=== PATIENT | female | born 1970 | race Caucasian/White ===

== ENCOUNTER → 2023-10-10 10:58 | Outpatient (BNVA) | payer OTHER, SELFPAY | PROVIDERS: Visit Provider Nurse Practitioner Family | DX: M25.571 Pain in right ankle and joints of right foot (principal) | CPT/HCPCS: 73610 ==

== ENCOUNTER → 2023-10-14 14:34 | Outpatient (BNVA) | payer OTHER, SELFPAY | PROVIDERS: Visit Provider Podiatrist Foot & Ankle Surgery | DX: S93.401A Sprain of unspecified ligament of right ankle, initial encounter; X50.9XXA Other and unspecified overexertion or strenuous movements or postures, initial encounter | CPT/HCPCS: 73610 ==

== ENCOUNTER → 2024-04-20 08:47 | Outpatient (BNVA) | payer OTHER, SELFPAY | PROVIDERS: Visit Provider Nurse Practitioner Women's Health | DX: Z32.01 Encounter for pregnancy test, result positive (principal); N91.2 Amenorrhea, unspecified; N88.8 Other specified noninflammatory disorders of cervix uteri | CPT/HCPCS: 76830; 81025; 82670; 83001; 83002; 84702; 86850; 86900 ==

== ENCOUNTER → 2024-04-28 09:03 | Outpatient (BNVA) | payer OTHER, SELFPAY | PROVIDERS: Visit Provider Nurse Practitioner Women's Health | DX: N91.2 Amenorrhea, unspecified (principal) | CPT/HCPCS: 84702 ==

== ENCOUNTER → 2024-05-06 08:41 | Outpatient (BNVA) | payer OTHER, SELFPAY | PROVIDERS: Visit Provider Nurse Practitioner Women's Health | DX: N88.8 Other specified noninflammatory disorders of cervix uteri (principal) | CPT/HCPCS: 76830 ==

== ENCOUNTER → 2024-05-12 08:40 | Outpatient (BNVA) | payer OTHER, SELFPAY | PROVIDERS: Visit Provider Obstetrics & Gynecology | DX: R30.0 Dysuria (principal) | CPT/HCPCS: 84315; 87086 ==

== ENCOUNTER 2024-05-21 06:44 | Day surgery (SDC) | payer OTHER, BC, SELFPAY ==
[2024-05-21] VITALS (10 sets, daily range): BP systolic 145–201; BP diastolic 98–148; PULSE 67–98; RESP 14–22; TEMP 36.1–36.9; O2SAT 95–100; BMI 22.1
--- NOTE | 2024-05-21 05:06 | P.HP_ITS ---
Same Day Surgery H&P Indication for Procedure/HPI DATE OF PROCEDURE: May 21, 2024 CHIEF COMPLAINT/INDICATIONFOR SURGICAL PROCEDURE: abnormal uterine bleeding PREOP DIAGNOSIS: abnormal uterine bleeding PLANNED PROCEDURE: Operation Date: 05/21/24 08:35 Proposed Procedures p Hysteroscopy Hysteroscopy w/ Endometrial Sampling 07447, N93.9(Not Applicable) - Jeremias Bustamante MD s possible endometrial polypectomy(Not Applicable) - Jeremias Bustamante MD 54 y.o. with abnormal uterine bleeding Medications/Allergies* Home Medications Medication Instructions Recorded Confirmed Type No Known Home Medications 05/20/24 05/20/24 History Allergies/Adverse Reactions Allergy/AdvReac Type Severity Reaction Status Date / Time No Known Allergies Allergy Verified 05/20/24 13:40 Pertinent History/Comorbid Conditions* Family History (Updated 04/20/24 @ 10:27 by Phuong Leach [facility]) Hypertension Father Denies family history of Colon cancer Ovarian cancer Prostate cancer Diabetes Heart disease Breast cancer Uterine cancer Thyroid disease Stroke Social History Smoking and tobacco/nicotine status: never used tobacco/nicotine Pertinent Exam Findings alert, oriented x 3, clear to auscultation bilaterally and regular rate & rhythm Recommendations Surgery/Procedure today Coding Level of Care Code Acute Code for Chg Fwd Time Spent (min) 20
[2024-05-21] MEDS: sodium chloride 0.9% 1,000 ML 30 ML IV (07:14)
--- NOTE | 2024-05-21 07:27 | ANES.PREANE2 ---
Pre-Anesthetic Assessment Height/Weight: Height 5 ft 9 in Weight 150 lb Temp Pulse Resp BP Pulse Ox O2 Del Method 98.4 F 98 18 177/129 98 Room Air 05/21/24 06:53 05/21/24 06:53 05/21/24 06:53 05/21/24 06:53 05/21/24 06:53 05/21/24 06:53 Preop Diagnosis: abnormal uterine bleeding Operation Date: 05/21/24 08:35 Proposed Procedures p Hysteroscopy Hysteroscopy w/ Endometrial Sampling 80407, N93.9(Not Applicable) - Jeremias Bustamante MD s possible endometrial polypectomy(Not Applicable) - Jeremias Bustamante MD Last intake: Intake Last Liquid Date 05/20/24 Last Liquid Time 19:00 Last Solid Date 05/20/24 Last Solid Time :00 Social No alcohol and No tobacco Exam alert, oriented x 3, clear to auscultation bilaterally and regular rate & rhythm Airway Submandibular: within normal limits Cervical ROM: within normal limits Mallampati: Class II Dentition: full Anesthetic Plan ASA status: 2 Anesthesia: General Other: No prior issues with anesthesia NPO since midnight BP 177/129 this a.m. in preop. Patient states that she is very nervous. No home BP meds She denies any cardiac or pulmonary issues METs greater than 4 Plan for general anesthesia with LMA Medications/Allergies Home Medications Medication Instructions Recorded Confirmed Last Taken Type No Known Home Medications 05/20/24 05/20/24 Unknown History Allergies Allergy/AdvReac Type Severity Reaction Status Date / Time No Known Allergies Allergy Verified 05/20/24 13:40 Current Medications Generic Name Dose Route Start Last Admin Trade Name Alf PRN Reason Stop Dose Admin Sodium Chloride 1,000 mls @ 30 mls/hr 05/21/24 07:00 05/21/24 07:14 Sodium Chloride 0.9% IV 05/22/24 06:59 30 mls/hr .Q24H TARIQ Administration PFSH Anesthesia Family History (Updated 04/20/24 @ 10:27 by Phuong Leach CMA) Father Hypertension Denies family history of Colon cancer Ovarian cancer Prostate cancer Diabetes Heart disease Breast cancer Uterine cancer Thyroid disease Stroke Social History Smoking and tobacco/nicotine status: never used tobacco/nicotine Data Anesthesia Cardiac Studies: No Data to Display
--- NOTE | 2024-05-21 07:27 | W.PM.OPSUD ---
Surgery/Procedure H&P Update DATE OF PROCEDURE: May 21, 2024 DATE H&P PERFORMED: 05/12/24 H&P UPDATE INFORMATION: I have reviewed H&P completed within last 30 days, I have examined patient prior to procedure and No changes to prior documentation PREOP DIAGNOSIS: abnormal uterine bleeding PLANNED PROCEDURE: Operation Date: 05/21/24 08:35 Proposed Procedures p Hysteroscopy Hysteroscopy w/ Endometrial Sampling 59770, N93.9(Not Applicable) - Jeremias Bustamante MD s possible endometrial polypectomy(Not Applicable) - Jeremias Bustamante MD
--- NOTE | 2024-05-21 08:20 | PM.OP ---
Operative Report Date of procedure: May 21, 2024 Pre-op diagnosis: abnormal uterine bleeding Post-op diagnosis: same Post-op findings: normal endometrial cavity No polyps / fibroids Minimal endometrial tissue Procedure done: hysteroscopy Curettage of uterus Implants: none Specimens removed/disposition: endometrial curettings Surgeon: Jeremias Bustamante MD Anesthesia: MAC Estimated blood loss (mL): 0 Complications: none Findings: normal endometrial cavity No polyps / fibroids Minimal endometrial tissue Condition: stable Disposition: PACU Brief History: 54 y.o. with abnormal uterine bleeding Procedure: Informed consent signed. Patient was taken to the operating room. Anesthesia was induced. Patient was placed in dorsolithotomy position, prepped and draped for hysteroscopy. A bivalve speculum was placed in the vagina. The anterior lip of the cervix was grasped with a sharp-toothed tenaculum. The cervix was serially dilated with Hegar dilators. . A hysteroscope was placed into the endometrial cavity. The endometrial cavity was seen to be normal. There were no polyps or fibroids. There was a minimal amount of endometrial tissue. The hysteroscope was then removed. Endometrial curettage was done with a sharp curette. Endometrial tissue was sent to pathology. The sharp-toothed tenaculum was removed. There was no bleeding from the endometrial cavity or cervix. The patient was then placed supine and awakened and taken to the PACU. Postop condition: stable EBL: none Sponge and instruments counts were normal x 2 Complications: none
--- NOTE | 2024-05-21 09:38 | PC.NURSE ---
Pt. stated her blood pressure is consistantly systolic in the teens over 70 s diastolic. pt stated she does not want any medication to lower her bp here because in the past when treated at medical facility she then goes home and relaxes and her bp bottoms out. anesthesia has been aware of bp during stay and no new orders at this time.
--- NOTE | 2024-05-21 09:52 | ANE.PACU2 ---
Inpatient post-anesthesia follow up: Airway intact: Yes Vital signs: Temperature 97 F Pulse Rate 67 Respiratory Rate 18 Blood Pressure 182/98 Pulse Oximetry 100 Oxygen Delivery Me thod Room Air Oxygen Flow Rate Fraction of Inspir ed Oxygen Hydration adequate: Yes Nausea and vomiting: No Pain level: 1 Mental status: Baseline
== END 2024-05-21 09:52 | disposition home or self-care (01) ==
PROVIDERS: PCP Nurse Practitioner Family; Visit Provider Obstetrics & Gynecology
PROC: 0UJD8ZZ Inspection of Uterus and Cervix, Via Natural or Artificial Opening Endoscopic (ICD-10-PCS; CPT 58555; principal; 2024-05-21 08:25)
DX: N93.9 Abnormal uterine and vaginal bleeding, unspecified (principal)
CPT/HCPCS: 58558; 88305; J1100; J2250; J2310; J2371; J2405; J2704; J3010; J7030

== ENCOUNTER → 2025-06-17 11:21 | Outpatient (BNVA) | payer BC, OTHER, SELFPAY | PROVIDERS: PCP Nurse Practitioner Family; Visit Provider Obstetrics & Gynecology | DX: N93.9 Abnormal uterine and vaginal bleeding, unspecified (principal) | CPT/HCPCS: 83001; 84443 ==